=== PATIENT | male | born 1990 | race Hispanic/Latino ===

== ENCOUNTER 2020-01-14 17:31 | Emergency (ER) | payer SELFPAY | END 2020-01-14 18:42 | disposition home or self-care (01) | LOC: EDH 17:31 | DX: B02.9 Zoster without complications (principal) ==

== ENCOUNTER 2024-11-11 14:42 | Emergency (ER) | payer BC ==
[~2024-11-11] VITALS: Ht 165.1 cm; Wt 76.7 kg
--- NOTE | 2024-11-11 15:14 | ERN ---
ED Note History of Present Illness Stated Complaint: RASH Chief Complaint: Itching Time Seen by MD: 14:44 Dictation: PATIENT IS A 34-YEAR-OLD MALE COMING IN TODAY WITH COMPLAINTS OF GENERALIZED BODY ITCHING ONSET THIS MORNING. HE STATES HE AND A FRIEND IT MOVE SOME THINGS OUT OF A STORAGE UNIT AND THE ITCHING STARTED AFTER THEY FINISHED THE MOVE. HE STATES I DO NOT HAVE A RASH I DO NOT HAVE ANY SHORTNESS A BREATH. NO RASH NOTED IN TRIAGE NO ANGIOEDEMA. PATIENT HAS TAKEN NOTHING TODAY PRIOR TO ARRIVAL FOR ITCHING AND HAS NO PRIMARY CARE DOCTOR. HE DOES NOT HAVE A DESIGNATED RIBBON BLOCKMAKER Allergies: Coded Allergies: No Known Drug Allergies (Unverified Allergy, Unknown, 11/11/24) Home Meds Active Scripts Methylprednisolone (Medrol) 4 Mg Tab.ds.pk, 1 TAB PO AD for 6 Days, #21 TAB 0 Refills 6 on day 1 then reduce by one tablet daily until gone Prov:VIRI BEASLEY MASTER DATA ANALYST 11/11/24 Diphenhydramine HCl (Benadryl) 50 Mg Cap, 50 MG PO Q6H for itching/rash, #20 CAP 0 Refills Prov:VIRI BEASLEY MASTER DATA ANALYST 11/11/24 Past Medical History Past Medical History: No Pertinent History Surgical History: None RN Note Reviewed/Agreed w/PFSH: Yes Review of System Dictation CONSTITUTIONAL: NEGATIVE EXCEPT FOR HPI HEAD/FACE: NEGATIVE EXCEPT FOR HPI EENT: NEGATIVE EXCEPT FOR HPI RESPIRATORY: NEGATIVE EXCEPT FOR HPI GASTROINTESTINAL/ABDOMINAL: NEGATIVE EXCEPT FOR HPI GENITOURINARY: NEGATIVE EXCEPT FOR HPI MUSCULOSKELETAL: NEGATIVE EXCEPT FOR HPI INTEGUMENTARY: NEGATIVE EXCEPT FOR HPI GENERALIZED ITCHING NEUROLOGICAL/PSYCH: NEGATIVE EXCEPT FOR HPI HEMATOLOGIC/LYMPHATIC: NEGATIVE EXCEPT FOR HPI ALL SYSTEMS NEGATIVE, EXCEPT NOTED ABOVE. 13 POINT REVIEW OF SYSTEMS ASSESSED AND ALL NEGATIVE EXCEPT FOR ABOVE. Initial Vital Sign VS Vital Signs Date Time Temp Pulse Resp B/P (MAP) Pulse Ox O2 Delivery O2 Flow Rate FiO2 11/11/24 14:58 98.2 89 16 118/72 100 Room Air 11/11/24 15:20 0 21 Physical Exam Dictation VITAL SIGNS REVIEWED GENERAL APPEARANCE: ALERT, ORIENTED X 3, MILD ACUTE DISTRESS, WELL DEVELOPED, NOURISHED. HEAD AND FACE: NON-TRAUMATIC. EYES: PERRL, PINK CONJUNCTIVAS, EYELID NO TRAUMA, ANTERIOR CHAMBER WITH ARCUS SENILIS. EARS: PINNAS INTACT AND NO SIGNS OF TRAUMA OR ERYTHEMA EAR CANALS CLEAR AND NO DISCHARGE TM NO ERYTHEMA NOSE: NO DISCHARGE, NO BLEEDING. OROPHARYNX: MOUTH NORMAL, TONGUE PINK, PHARYNX CLEAR,NO ERYTHEMA, TONSILS NO EXUDATES, NO ABSCESSES NOTED, MUCOUS MEMBRANE MOIST NECK: SUPPLE, NON-TENDER, NO THYROMEGALY, NO MASSES, NO JVD, NO BRUITS BREAST:DEFERRED CHEST:NO TENDERNESS, NO CREPITUS, NO PARADOXICAL MOVEMENT, NO RETRACTIONS LUNGS:CLEAR, WELL-VENTILATED, SYMMETRIC, NO RALES, NO WHEEZING, NO RHONCHI, NO STRIDOR, GOOD BREATH SOUNDS BILATERALLY HEART: REGULAR RATE, REGULAR RHYTHM, NO MURMUR, NO GALLOPS VASCULAR: NO PERIPHERAL EDEMA, ABDOMEN: SOFT, POSITIVE BOWEL SOUNDS, NONDISTENDED, NO GUARDING, NONTENDER, NO REBOUND, NO MASSES NO HEPATOMEGALY, NO SPLENOMEGALY, NO SCHMID'S SIGN, NO HERNIAS. RECTAL: DEFERRED GENITAL: DEFERRED NEUROLOGICAL: NORMAL SPEECH, MOTOR FUNCTION INTACT, SENSORY FUNCTION INTACT MUSCULOSKELETAL: NECK NONTENDER, FULL RANGE OF MOTION, BACK NONTENDER, FULL RANGE OF MOTION, EXTREMITIES: NONTENDER, FULL RANGE OF MOTION SKIN: COLOR PINK, DRY, NO RASH, NO ANGIOEDEMA. GENERALIZED ITCHING NOTED. LYMPHATIC: DEFERRED Results (Laboratory/Radiology) Labs Reviewed?: Yes ED Course ED Course Orders Procedure Category Date Status Time Dexamethasone 4mg/Ml PHA 11/11/24 Complete 1ml Vial (Dexametha 15:30 Current Medications Medications (Trade) Dose Ordered Sig/Shaniqua Route PRN Reason Start Time Stop Time Status Last Admin Dose Admin Dexamethasone Sodium Phosphate (dexaMETHasone 4MG/ML 1ML VIAL) 8 mg ONCE ONCE IM 11/11/24 15:30 11/11/24 15:31 DC 11/11/24 15:19 Vital Signs Date Time Temp Pulse Resp B/P (MAP) Pulse Ox O2 Delivery O2 Flow Rate FiO2 11/11/24 15:20 98.4 74 20 128/56 98 Room Air* 0 21 11/11/24 14:58 98.2 89 16 118/72 100 Room Air 1510/PATIENT HAS NO DESIGNATED RIBBON BLOCKMAKER. HE WILL BE GIVEN DECADRON8 MG IM AND PRESCRIBED BENADRYL 50 MG AND MEDROL DOSEPAK TO TAKE AT HOME.15 Medical Decision Making MDM MEDICAL DISCHARGE MAKING BASED ON EMPIRIC TREATMENT FOR ACUTE ITCHING. NO RASH AT THIS TIME NO ANGIOEDEMA NO DESIGNATED RIBBON BLOCKMAKER AND WE WILL GIVE DECADRON ONLY HERE AT THE HOSPITAL BENADRYL WE WILL BE PRESCRIBED AFTER HE ARRIVES HOME DX & DISP Disposition: Discharge Departure Impression: Primary Impression: Itching Additional Impression: Contact dermatitis Condition: Stable Scripts Methylprednisolone (Medrol) 4 Mg Tab.ds.pk 1 TAB PO AD for 6 Days, #21 TAB 0 Refills 6 on day 1 then reduce by one tablet daily until gone Prov: VIRI BEASLEY NP 11/11/24 Diphenhydramine HCl (Benadryl) 50 Mg Cap 50 MG PO Q6H for itching/rash, #20 CAP 0 Refills Prov: VIRI BEASLEY MASTER DATA ANALYST 11/11/24 Additional Instructions: FOLLOW-UP WITH PRIMARY CARE PROVIDER IN 1 TO 2 DAYS. TAKE MEDICATIONS DIRECTED HERE IN THE EMERGENCY ROOM. OKAY TO CONTINUE HOME MEDICATIONS UNLESS OTHERWISE DISCUSSED DURING YOUR VISIT IN THE EMERGENCY ROOM TODAY. RETURN TO YOUR NEAREST EMERGENCY ROOM IF SYMPTOMS WORSEN OR IF THERE IS NO IMPROVEMENT. CALL 911 IF YOU NEED IMMEDIATE ASSISTANCE. TAKE TYLENOL OR MOTRIN [id number] NEEDED AND IF NO CONTRAINDICATIONS ARE PRESENT. INCREASE ORAL HYDRATION. A WOUND CULTURE OR URINE CULTURE WAS ORDERED HERE IN THE EMERG ENCY ROOM DEPARTMENT PLEASE FOLLOW-UP WITH PRIMARY CARE PROVIDER AND ADVISE THEM TO GET REPEAT PORTS FROM OUR FACILITY. IF YOU HAD ANY ESTELA WRAP/SPLINTS THAT WERE APPLIED HERE, PLEASE DO NOT REMOVE THEM UNTIL YOU SEE YOUR PRIMARY CARE OR SPECIALTY. TAKE BENADRYL 50 MG EVERY 6 HOURS FOR THREE DOSES. TAKE MEDROL DOSEPAK DIRECTED UNTIL GONE. , SEE YOUR PRIMARY CARE DOCTOR FOR FOLLOW UP. GO HOME AND TAKE A SHOWER AND WASH YOUR BODY THOROUGHLY, THEN CHANGE YOUR CLOSED TO CLEAN CLOSED. Referrals: SELF,REFERRAL (PCP) Time of Disposition: 15:13 I have reviewed the case, and I agree with, Diagnosis and Plan VIRI BEASLEY NP Nov 11, 2024 15:14 JESSICA ALCOCER DO Nov 12, 2024 05:56
[2024-11-11] MEDS: dexaMETHasone SOD PHOSPHATE 4 MG/ML 1ML VIAL IM ONE (15:19)
[2024-11-11 15:20] VITALS: BP 128/56; PULSE 74; RESP 20; TEMP 98.5; O2SAT 98
[2024-11-11] MEDS ORDERED: DIPH50 PO (15:29)
[2024-11-11] MEDS ORDERED: METH4TAB3 PO (15:29)
== END 2024-11-11 15:40 | disposition home or self-care (01) ==
LOC: EDH 14:42
DX: L25.9 Unspecified contact dermatitis, unspecified cause (principal); Z79.899 Other long term (current) drug therapy
CPT/HCPCS: 99284; 96372; J1100

== ENCOUNTER 2025-01-14 13:01 | Emergency (ER) | payer BC ==
[~2025-01-14] VITALS: Ht 167.6 cm; Wt 73.9 kg
[~2025-01-14 13:01] MED LIST: DIPH50 PO; METH4TAB3 PO
--- NOTE | 2025-01-14 13:11 | ERN ---
ED Note History of Present Illness Stated Complaint: DISCHARGE FROM PENIS Chief Complaint: Sexually Transmitted Disease Time Seen by MD: 13:05 Dictation: PATIENT IS A 34-YEAR-OLD MALE COMING IN TODAY WITH COMPLAINTS OF HAVING DYSURIA WITH A WHITE DISCHARGE FROM HIS PENIS ONSET THIS WEEK. NO FEVER NO CHILLS NO NAUSEA VOMITING. STATES HE HAD UNPROTECTED SEX CASUALLY WITH THE PERSON HE DID NOT KNOW A WEEK AGO, ASKED HER ABOUT AND SHE SAID SHE WAS NOT HAVING ANY COMPLAINTS. NO PRIMARY CARE DOCTOR. HE IS CONCERNED FOR SEXUALLY TRANSMITTED DISEASE AND WOULD LIKE TO BE TESTED Allergies: Coded Allergies: No Known Drug Allergies (Unverified Allergy, Unknown, 11/11/24) Home Meds Active Scripts Methylprednisolone (Medrol) 4 Mg Tab.ds.pk, 1 TAB PO AD for 6 Days, #21 TAB 0 Refills 6 on day 1 then reduce by one tablet daily until gone Prov:VIRI BEASLEY PARKING LOT ATTENDANT 11/11/24 Diphenhydramine HCl (Benadryl) 50 Mg Cap, 50 MG PO Q6H for itching/rash, #20 CAP 0 Refills Prov:VIRI BEASLEY PARKING LOT ATTENDANT 11/11/24 Past Medical History Past Medical History: No Pertinent History Surgical History: None RN Note Reviewed/Agreed w/PFSH: Yes Review of System Dictation CONSTITUTIONAL: NEGATIVE EXCEPT FOR HPI HEAD/FACE: NEGATIVE EXCEPT FOR HPI EENT: NEGATIVE EXCEPT FOR HPI RESPIRATORY: NEGATIVE EXCEPT FOR HPI GASTROINTESTINAL/ABDOMINAL: NEGATIVE EXCEPT FOR HPI GENITOURINARY: NEGATIVE EXCEPT FOR HPI URETHRAL DISCHARGE WHITE WITH DYSURIA MUSCULOSKELETAL: NEGATIVE EXCEPT FOR HPI INTEGUMENTARY: NEGATIVE EXCEPT FOR HPI NEUROLOGICAL/PSYCH: NEGATIVE EXCEPT FOR HPI HEMATOLOGIC/LYMPHATIC: NEGATIVE EXCEPT FOR HPI ALL SYSTEMS NEGATIVE, EXCEPT NOTED ABOVE. 13 POINT REVIEW OF SYSTEMS ASSESSED AND ALL NEGATIVE EXCEPT FOR ABOVE. Initial Vital Sign VS Vital Signs Date Time Temp Pulse Resp B/P (MAP) Pulse Ox O2 Delivery O2 Flow Rate FiO2 01/14/25 13:04 98.2 86 16 121/77 99 Room Air 0 01/14/25 13:31 21 Physical Exam Dictation VITAL SIGNS REVIEWED RENAY RN IN ROOM WITH THE EXAM GENERAL APPEARANCE: ALERT, ORIENTED X 3, NO ACUTE DISTRESS, WELL DEVELOPED, NOURISHED. HEAD AND FACE: NON-TRAUMATIC. EYES: PERRL, PINK CONJUNCTIVAS, EYELID NO TRAUMA, ANTERIOR CHAMBER WITH ARCUS SENILIS. EARS: PINNAS INTACT AND NO SIGNS OF TRAUMA OR ERYTHEMA EAR CANALS CLEAR AND NO DISCHARGE TM NO ERYTHEMA NOSE: NO DISCHARGE, NO BLEEDING. OROPHARYNX: MOUTH NORMAL, TONGUE PINK, PHARYNX CLEAR,NO ERYTHEMA, TONSILS NO EXUDATES, NO ABSCESSES NOTED, MUCOUS MEMBRANE MOIST NECK: SUPPLE, NON-TENDER, NO THYROMEGALY, NO MASSES, NO JVD, NO BRUITS BREAST:DEFERRED CHEST:NO TENDERNESS, NO CREPITUS, NO PARADOXICAL MOVEMENT, NO RETRACTIONS LUNGS:CLEAR, WELL-VENTILATED, SYMMETRIC, NO RALES, NO WHEEZING, NO RHONCHI, NO STRIDOR, GOOD BREATH SOUNDS BILATERALLY HEART: REGULAR RATE, REGULAR RHYTHM, NO MURMUR, NO GALLOPS VASCULAR: NO PERIPHERAL EDEMA, ABDOMEN: SOFT, POSITIVE BOWEL SOUNDS, NONDISTENDED, NO GUARDING, NONTENDER, NO REBOUND, NO MASSES NO HEPATOMEGALY, NO SPLENOMEGALY, NO SCHMID'S SIGN, NO HERNIAS. RECTAL: DEFERRED GENITAL: PATIENT IS HOODED, BY HIS BILATERAL TESTICLES ARE DESCENDED. NO DISCHARGE NOTED, URETHRA ERYTHEMATOUS WITH SINGLE LESION NOTED TO THE SUPERIOR ASPECT OF THE URETHRA POSSIBLE HERPES NEUROLOGICAL: NORMAL SPEECH, MOTOR FUNCTION INTACT, SENSORY FUNCTION INTACT MUSCULOSKELETAL: NECK NONTENDER, FULL RANGE OF MOTION, BACK NONTENDER, FULL RANGE OF MOTION, EXTREMITIES: NONTENDER, FULL RANGE OF MOTION SKIN: COLOR PINK, DRY, NO TURGOR, NO RASH, NO LACERATIONS, NO ABRASIONS, NO CONTUSIONS. LYMPHATIC: DEFERRED Results (Laboratory/Radiology) Labs Reviewed?: Yes ED Course ED Course Orders Procedure Category Date Status Time Chlamydia & Gc Pcr STACEY 01/14/25 In Process 13:08 Ceftriaxone 1g Vial PHA 01/14/25 Complete (Rocephine 1g Inj) 13:30 Current Medications Medications (Trade) Dose Ordered Sig/Shaniqua Route PRN Reason Start Time Stop Time Status Last Admin Dose Admin Ceftriaxone Sodium (ROCEphine 1G INJ) 1 gm ONCE ONCE IM 01/14/25 13:30 01/14/25 13:31 DC 01/14/25 13:28 Vital Signs Date Time Temp Pulse Resp B/P (MAP) Pulse Ox O2 Delivery O2 Flow Rate FiO2 01/14/25 13:31 98.1 85 16 120/75 98 Room Air* 0 21 01/14/25 13:04 98.2 86 16 121/77 99 Room Air 0 1345/PATIENT WAS GIVEN ROCEPHIN 1 G HE IS AWARE THAT A GC CHLAMYDIA URINE WAS COLLECTED HOWEVER THE RESULTS WILL NOT BE FOR SEVERAL DAYS. HE WAS STRONGLY ADVISED TO BE COMPLIANT WITH THE MEDICATIONS PROVIDED HIM FOR PROPHYLAXIS NO SEX OF ANY KIND UNTIL CLEARED BY [facility] AND TO LOOKING THE PHONE BOOK FOR A NUMBER. HE WAS ALSO MADE HER THERE WERE THAT HE WOULD RECEIVE A CONFIDENTIAL CALL Medical Decision Making MDM MEDICAL DECISION-MAKING BASED ON PROPHYLACTIC TREATMENT FOR STD EXPOSURE POSSIBLE PATIENT RECEIVED ROCEPHIN 1 G DISCHARGED HOME WITH THE AZITHROMYCIN 1 G, DOXYCYCLINE 100 MG B.I.D. FOR 14 DAYS ADVISED TO HAVE NO SEX OF ANY KIND UNTIL CLEARED BY [facility], FOLLOW UP IN THE NEXT 1-2 DAYS. DX & DISP Disposition: Discharge Departure Impression: Primary Impression: Possible exposure to STD Condition: Stable Scripts Doxycycline Hyclate (Doxycycline Hyclate) 100 Mg Capsule 1 CAP PO BID for 14 Days, #28 CAP 0 Refills Prov: VIRI BEASLEY NP 01/14/25 Azithromycin (Zithromax Tri-Mook) 500 Mg Tablet 1000 MG PO ONCE for 1 Day, #2 TAB Prov: VIRI BEASLEY NP 01/14/25 Additional Instructions: FOLLOW-UP WITH PRIMARY CARE PROVIDER IN 1 TO 2 DAYS. TAKE MEDICATIONS DIRECTED HERE IN THE EMERGENCY ROOM. OKAY TO CONTINUE HOME MEDICATIONS UNLESS OTHERWISE DISCUSSED DURING YOUR VISIT IN THE EMERGENCY ROOM TODAY. RETURN TO YOUR NEAREST EMERGENCY ROOM IF SYMPTOMS WORSEN OR IF THERE IS NO IMPROVEMENT. CALL 911 IF YOU NEED IMMEDIATE ASSISTANCE. TAKE TYLENOL OR MOTRIN [id number] NEEDED AND IF NO CONTRAINDICATIONS ARE PRESENT. INCREASE ORAL HYDRATION. A WOUND CULTURE OR URINE CULTURE WAS ORDERED HERE IN THE EMERGENCY ROOM DEPARTMENT PLEASE FOLLOW-UP WITH PRIMARY CARE PROVIDER AND ADVISE THEM TO GET REPEAT PORTS FROM OUR FACILITY. IF YOU HAD ANY ESTELA WRAP/SPLINTS THAT WERE APPLIED HERE, PLEASE DO NOT REMOVE THEM UNTIL YOU SEE YOUR PRIMARY CARE OR SPECIALTY. NO SEX OF ANY KIND UNTIL CLEARED BY YOUR PRIMARY CARE DOCTOR OR CALL [facility] FOR FOLLOW UP OUTPATIENT. TAKE MEDICATIONS DIRECTED UNTIL GONE. Referrals: MYKE MOYA (PCP) Time of Disposition: 13:50 I have reviewed the case, and I agree with, Diagnosis and Plan VIRI BEASLEY NP Jan 14, 2025 13:11
[2025-01-14] MEDS: cefTRIAXone 1G VIAL IM ONE (13:28)
[2025-01-14 13:31] VITALS: BP 120/75; PULSE 85; RESP 16; TEMP 98.1; O2SAT 98
[2025-01-14] MEDS ORDERED: DOXY100C5 PO (13:54)
[2025-01-14] MEDS ORDERED: AZIT500T2 PO (13:54)
== END 2025-01-14 14:08 | disposition home or self-care (01) ==
LOC: EDH 13:01
DX: Z20.2 Contact with and (suspected) exposure to infections with a predominantly sexual mode of transmission (principal)
CPT/HCPCS: 99284; 87491; 87591; 96372; J0696